=== PATIENT | male | born 1985 | race Caucasian/White ===

== ENCOUNTER 2022-06-03 18:00 | Emergency (ER) | payer OTHER ==
[~2022-06-03] VITALS: Ht 182.9 cm; Wt 116.0 kg
[2022-06-03] MEDS ORDERED: KETAMINE 50mg/ML 10ml Vial (500mg/10ml) IV ONE (23:30)
[2022-06-04 01:15] VITALS: BP 128/80
== END 2022-06-04 01:30 | disposition home or self-care (01) ==
LOC: ER 18:00 → EEVIPCON 18:00 → ER 06-04 01:30
DX: S43.015A Anterior dislocation of left humerus, initial encounter (principal); S42.292A Other displaced fracture of upper end of left humerus, initial encounter for closed fracture; W18.39XA Other fall on same level, initial encounter; Y93.89 Activity, other specified; Y92.89 Other specified places as the place of occurrence of the external cause; Y99.8 Other external cause status
CPT/HCPCS: 23650; 73020; 73030; 99152; 99153